=== PATIENT | female | born 1990 | race Two or more races ===

== ENCOUNTER 2016-11-27 19:02 | Emergency (ER) | payer SELFPAY ==
[2016-11-27] MEDS ORDERED: NEOMY SULF/POLYMYX B SULF/HC OTIC SUSP 10 ML AD ONE (20:40)
--- NOTE | 2016-11-27 20:41 | ER Document Report ---
ED ENT - General Chief Complaint: Ear Pain Stated Complaint: EAR PAIN Time Seen by Provider: 11/27/16 20:17 TRAVEL OUTSIDE OF THE [place] IN LAST 30 DAYS: No - HPI Patient complains to provider of: Ear problem - right ear Onset: Other - 4 days Onset/Duration: Worse Quality of pain: Achy Severity: Moderate Context: denies: Allergies, Injury, Recent Illness, Travel, Other Location of pain: Ears - Right Associated symptoms: Ear pain. denies: None, Barotrauma, Broken tooth, Chills, Congestion, Cough, Dental pain, Dental caries, Difficulty swallowing, Dizziness , Drooling, Ear drainage, Ear trauma, Face swelling, Fever, Foreign body, Hearing loss, Headache, Hoarse voice, Jaw pain, Jaw swelling, Motion sickness, Neck pain, Nose bleed, Runny nose, Sinus pain, Sinus drainage, Sore throat, Stiff neck, Swollen glands, Tinnitus, Vertigo, Other Similar symptoms previously: Yes - h/o OE Recently seen / treated by doctor: No - Related Data Allergies/Adverse Reactions: No Known Allergies Allergy (Unverified 11/27/16 19:31) Past Medical History - Social History Smoking Status: Never Smoker Family History: Reviewed & Not Pertinent Patient has suicidal ideation: No Patient has homicidal ideation: No Renal/ Medical History: Denies: Hx Peritoneal Dialysis Review of Systems - Review of Systems Constitutional: No symptoms reported EENT: See HPI Cardiovascular: No symptoms reported Respiratory: No symptoms reported Physical Exam - Vital signs Vitals: Temp Pulse Resp BP Pulse Ox 98.5 F 84 18 160/109 H 96 11/27/16 19:29 11/27/16 19:29 11/27/16 19:29 11/27/16 19:29 11/27/16 19:29 - HEENT Head: Normocephalic, Atraumatic Eyes: Normal. No: Pale conjunctiva, Periorbital ecchymosis, Periorbital edema, Scleral icterus, Tears, Other Conjunctiva: Normal. No: Icteric, Injected, Purulent discharge, Other Extraocular movements intact: Yes Eyelashes: Normal Pupils: PERRL Ears: Pinna tenderness - 4right ear. No: Normal, Ecchymosis, Pinna laceration, Tragus laceration, Tragus tenderness, Other External canal: Erythema, Swollen. No: Normal, Blood in canal, Cerumen impaction, Foreign body - And 32, Other Tympanic membrane: Normal. No: Bulging, Hemotympanum, Injected, Loss of landmarks, Perforation, Purulent effusion, Retracted, Serous effusion, Other Sinus: Normal. No: Tenderness Nasal: Normal. No: Bloody discharge, Madhu deformity, Ecchymosis, Epistaxis, Purulent discharge, Septal hematoma, Swelling, Clear rhinorrhea, Other Mucous membranes: Normal Pharynx: Normal. No: Peritonsillar abscess, Post nasal drainage, Retropharyngeal abscess, Potential airway comprom. Neck: Normal. No: Anterior cervical chain, Posterior cervical chain - Respiratory Respiratory status: No respiratory distress Chest status: Nontender Breath sounds: Normal Chest palpation: Normal - Cardiovascular Rhythm: Regular Heart sounds: Normal auscultation, S1 appreciated, S2 appreciated Murmur: No Gallop: None auscultated Pulses: Normal: Radial Normal capillary refill: Yes - Neurological Neuro grossly intact: Yes Cognition: Normal Orientation: AAOx4 [place] Coma Scale Eye Opening: Spontaneous [place] Com[place] Scale Verbal: Oriented [place] Com[place] Scale Motor: Obeys Commands [place] Com[place] Scale Total: 15 Course - Re-evaluation Re-evalutation: 11/28/16 01:51 Patient is a 26-year-old female who is hemodynamically stable, no acute distress afebrile. Presentation today is consistent with otitis externa. Patient offered a break and drops with hydrocortisone. Patient given strict return precautions. Otherwise stable for discharge home. Patient agrees with plan - Vital Signs Vital signs: Temp Pulse Resp BP Pulse Ox 98.1 F 81 16 137/99 H 98 11/27/16 21:21 11/27/16 21:21 11/27/16 21:21 11/27/16 21:21 11/27/16 21:21 Discharge - Discharge Clinical Impression: Otitis externa Qualifiers: Otitis externa type: unspecified type Chronicity: unspecified Laterality: right Qualified Code(s): H60.91 - Unspecified otitis externa, right ear Condition: Good Disposition: HOME, SELF-CARE Instructions: Acetaminophen, Use of Ear Drops ([facility]), Using Ear Drops with a Wick ([facility]), Otitis Externa ([facility]) Additional Instructions: Place 4 drops 4 times a day in the affected ear for 7 days Prescriptions: Neomycin/Polymyxin B Sulf/Hc [Ssallvtb-Asqoxdcwa-Sx Ear Soln] 10 ml OT QID 7 Days solution
[2016-11-27 21:23] VITALS: BP 137/99
== END 2016-11-27 21:19 | disposition home or self-care (01) ==
LOC: ER 19:02
DX: H60.91 Unspecified otitis externa, right ear (principal)
CPT/HCPCS: 99282; J3490